=== PATIENT | male | born 1975 | race Caucasian/White ===

== ENCOUNTER 2016-09-24 22:04 | Observation (INO) | payer OTHER ==
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
[2016-09-24] MEDS ORDERED: IOPAMIDOL (ISOVUE 370) 100 ML BTL IV ONE (23:23)
[2016-09-24] MEDS ORDERED: SKIN ADHESIVE (DERMABOND) 1 EACH TP ONE (23:41)
[2016-09-25 00:20] LABS: % IMMATURE GRANULYOCYTES 0.3 % (0.0-1.1); ABSOLUTE IMMATURE GRANULOCYTES 0.02 10^3/uL (0.00-0.10); ADD DIFF? NO; ADD MORPH? NO; ADD SCAN? NO; ATYPICAL LYMPHOCYTE FLAG 20 (0-99); FRAGMENT RBC FLAG 0 (0-99); HEMATOCRIT 45.3 % (40.0-51.0); HEMOGLOBIN 15.5 g/dL (13.7-17.5); LEFT SHIFT FLG 0 (0-99); LIPEMIA HEMOLYSIS FLAG 90 (0-99); MEAN CELL HEMOGLOBIN CONCENTR. 34.2 g/dL (32.4-36.7); MEAN CELL VOLUME 90.6 fL (81.5-99.8); MEAN PLATELET VOLUME 9.4 fL (8.7-11.7); PLATELET CLUMPS FLAG 0 (0-99); PLATELET COUNT 206 10^3/uL (150-400); RED CELL DISTRIBUTION WIDTH 13.8 % (11.5-15.2)
[2016-09-25 00:26] LABS: ANION GAP 16 mEq/L (8-16); CALCIUM 9.2 mg/dL (8.5-10.4); CARBON DIOXIDE 23 mEq/l (22-31); CHLORIDE 105 mEq/L (97-110); CREATININE 0.9 mg/dL (0.7-1.3); GLOMERULAR FILTRATION RATE > 60; GLUCOSE 92 mg/dL (70-100); SODIUM 144 mEq/L (134-144)
[2016-09-25 00:50] LABS: APTT 25.8 SEC (23.0-38.0); PROTIME(PATIENT) 12.9 SEC (12.0-15.0)
[2016-09-25 00:51] LABS: INR 0.98 (0.83-1.16)
[2016-09-25] MEDS ORDERED: ASPIRIN 325 MG TAB ONE (01:20)
[2016-09-25] MEDS ORDERED: ONDANSETRON 4 MG/2 ML VIAL IVP PRN (01:22)
[2016-09-25] MEDS ORDERED: LR 1,000 ML IV SCH (01:30)
[2016-09-25] MEDS ORDERED: ASPIRIN 325 MG TAB PO ONE (01:31)
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
[2016-09-25] MEDS: ACETAMINOPHEN 500 MG TAB PO SCH ×3 (05:35→22:01)
[2016-09-25] MEDS ORDERED: ASPIRIN 325 MG TAB PO SCH (06:00)
[2016-09-25 06:20] LABS: ANION GAP 14 mEq/L (8-16); CALCIUM 8.8 mg/dL (8.5-10.4); CARBON DIOXIDE 21 mEq/l (22-31); CHLORIDE 105 mEq/L (97-110); CREATININE 0.7 mg/dL (0.7-1.3); GLOMERULAR FILTRATION RATE > 60; GLUCOSE 71 mg/dL (70-100); POTASSIUM 3.9 mEq/L (3.5-5.2); SODIUM 140 mEq/L (134-144)
[2016-09-25] MEDS ORDERED: PANTOPRAZOLE SODIUM 40 MG in NS 100 ML IV SCH (09:00)
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
[2016-09-25] MEDS: ASPIRIN 325 MG TAB PO SCH (10:34)
--- NOTE | 2016-09-25 11:12 | NEUROPROG ---
Assessment: Consult initiated full report to follow. Daily ASA for now. Objective: Vital Signs Temp Pulse Resp BP Pulse Ox 37.1 C 67 14 111/74 96 09/25/16 07:00 09/25/16 07:00 09/25/16 07:00 09/25/16 07:00 09/25/16 07:00 Laboratory Results 09/25/16 05:36 09/24/16 09/25/16 09/26/16 05:59 05:59 05:59 Intake Total 747 Output Total 0 Balance 747 PT 12.9 SEC (12.0-15.0) 09/24/16 Unknown INR 0.98 (0.83-1.16) 09/24/16 Unknown Allergies/Adverse Reactions: No Known Allergies Allergy (Verified 05/14/13 14:39)
--- NOTE | 2016-09-25 11:24 | EDPHY ---
PONCE Addendum - Addendum .: 11 20: I received a call from Dr. Aaron De La Cruz regarding the patient's images from last evening. After review of the cervical spine images they were concerned the patient could have an unstable C-spine injury. I discussed this with Dr. Cuellar who was admitting physician.
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
[2016-09-26] MEDS: ACETAMINOPHEN 500 MG TAB PO SCH (06:22)
[2016-09-26 06:35] LABS: % IMMATURE GRANULYOCYTES 0.2 % (0.0-1.1); ABSOLUTE IMMATURE GRANULOCYTES 0.01 10^3/uL (0.00-0.10); ADD DIFF? NO; ADD MORPH? NO; ADD SCAN? NO; ATYPICAL LYMPHOCYTE FLAG 20 (0-99); FRAGMENT RBC FLAG 0 (0-99); HEMOGLOBIN 16.9 g/dL (13.7-17.5); LEFT SHIFT FLG 0 (0-99); LIPEMIA HEMOLYSIS FLAG 90 (0-99); MEAN CELL HEMOGLOBIN CONCENTR. 34.5 g/dL (32.4-36.7); MEAN CELL VOLUME 89.9 fL (81.5-99.8); MEAN PLATELET VOLUME 9.3 fL (8.7-11.7); PLATELET CLUMPS FLAG 20 (0-99); PLATELET COUNT 178 10^3/uL (150-400); RED BLOOD CELL COUNT 5.45 10^6/uL (4.40-6.38); RED CELL DISTRIBUTION WIDTH 13.5 % (11.5-15.2)
[2016-09-26 08:01] VITALS: RESP 18
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
[2016-09-26] MEDS: ASPIRIN 325 MG TAB PO SCH (09:02)
[2016-09-26 12:24] VITALS: BP 112/75; PULSE 84; TEMP 98.4; O2SAT 99
== END 2016-09-26 13:48 | disposition home or self-care (01) ==
LOC: EDUNIT# → F2N 09-25 02:42
PROVIDERS: ADMIT Surgery; ATTEND Surgery
PROC: 0HQ1XZZ Repair Face Skin, External Approach (ICD-10-PCS; principal; 2016-09-25)
DX: S12.500A Unspecified displaced fracture of sixth cervical vertebra, initial encounter for closed fracture (principal); S15.19 Other specified injury of vertebral artery; S14.0XXA Concussion and edema of cervical spinal cord, initial encounter; S13.161A Dislocation of C5/C6 cervical vertebrae, initial encounter; S01.21XA Laceration without foreign body of nose, initial encounter; V43.52XA Car driver injured in collision with other type car in traffic accident, initial encounter; W22.11XA Striking against or struck by driver side automobile airbag, initial encounter; Y92.414 Local residential or business street as the place of occurrence of the external cause; M48.02 Spinal stenosis, cervical region; Z87.891 Personal history of nicotine dependence; Z87.19 Personal history of other diseases of the digestive system; Z87.820 Personal history of traumatic brain injury
CPT/HCPCS: 12011; 70450; 70498; 72125; 72141; 92507; 92523; 97161; 97165; 99285; G0378; 82947-QW; L0174; Q9967

== ENCOUNTER → 2016-11-04 | Outpatient (CLI) | payer OTHER | LOC: FIMAGING 08:02 → EDSTATUS 08:04 | PROVIDERS: ATTEND Physician Assistant Surgical | DX: M50.322 Other cervical disc degeneration at C5-C6 level (principal); M41.82 Other forms of scoliosis, cervical region ==

== ENCOUNTER → 2016-12-12 | Outpatient (CLI) | payer OTHER | LOC: FIMAGING 07:43 → FLAB 07:43 → EDSTATUS 07:45 | PROVIDERS: ATTEND Physician Assistant Surgical ==